=== PATIENT | male | born 1995 | race Caucasian/White ===

== ENCOUNTER 2017-01-29 20:36 | Emergency (ER) | payer BC ==
[2017-01-29] MEDS ORDERED: Ketorolac 60 MG/2 ML SDV IM ONE (21:08)
--- NOTE | 2017-01-29 21:12 | EDM.PDOC ---
ED HPI GENERAL MEDICAL PROBLEM - General Chief Complaint: Lower Extremity Injury/Pain Stated Complaint: PT HURT RT KNEE Time Seen by Provider: 01/29/17 21:10 Source of Information: Reports: Patient History Limitations: Reports: No Limitations - History of Present Illness INITIAL COMMENTS - FREE TEXT/NARRATIVE: History of present illness: [21-year-old male comes in status post trauma 3 weeks ago to right knee. Patient was playing basketball when he hyperextended his leg could not ambulate or bear weight on of her period of 5 minutes but then the pain went away and he was able to use it as was his norm. Patient now today he is visiting family and friends as he is from out of town and he was stepping out of the pickup when his leg gave out.] Review of systems: As per history of present illness and below otherwise all systems reviewed and negative. Past medical history: As per history of present illness and as reviewed below otherwise noncontributory. Surgical history: As per history of present illness and as reviewed below otherwise noncontributory. Social history: No reported history of drug or alcohol abuse. Family history: As per history of present illness and as reviewed below otherwise noncontributory. Physical exam: HEENT: Atraumatic, normocephalic, pupils reactive, negative for conjunctival pallor or scleral icterus, mucous membranes moist, throat clear, neck supple, nontender, trachea midline. Lungs: Clear to auscultation, breath sounds equal bilaterally, chest nontender. Heart: S1S2, regular, negative for clicks, rubs, or JVD. Abdomen: Soft, nondistended, nontender. Negative for masses or hepatosplenomegaly. Negative for costovertebral tenderness. Pelvis: Stable nontender. Genitourinary: Deferred. Rectal: Deferred. Extremities: Painful range of motion and guarding noted negative for cords or calf pain. Neurovascular unremarkable. Neuro: Awake, alert, oriented. Cranial nerves II through XII unremarkable. Cerebellum unremarkable. Motor and sensory unremarkable throughout. Exam nonfocal. Diagnostics: [X-ray right knee] Therapeutics: [Toradol] Impression: [Knee pain] Plan: [Wear brace, crutches follow-up with orthopedic Definitive disposition and diagnosis as appropriate pending reevaluation and review of above. right knee Pain Score (Numeric/FACES): 3 - Related Data Allergies Allergy/AdvReac Type Severity Reaction Status Date / Time No Known Allergies Allergy Verified 01/29/17 21:08 Home Meds: Home Meds . [No Known Home Meds] 01/29/17 [History] Review of Systems - Review of Systems Review Of Systems: See Below (History of present illness) ED EXAM, GENERAL - Physical Exam Exam: See Below (See history of present illness) Course - Vital Signs Last Recorded V/S: Last Vital Signs Temp 36.8 C 01/29/17 21:08 Pulse 60 01/29/17 21:08 Resp 16 01/29/17 21:08 BP 100/60 01/29/17 21:08 Pulse Ox 98 01/29/17 21:08 - Orders/Labs/Meds Orders: Active Orders 24 hr Category Date Time Status Knee 3V Rt [CR] Stat Exams 01/29/17 21:08 Ordered Meds: Medications Discontinued Medications Generic Name Dose Route Start Last Admin Trade Name Freq PRN Reason Stop Dose Admin Ketorolac Tromethamine 60 mg 01/29/17 21:08 Toradol IM 01/29/17 21:09 ONETIME ONE Departure - Departure Time of Disposition: 22:09 Disposition: Home, Self-Care 01 Condition: Good Clinical Impression: Knee pain - Discharge Information Instructions: Knee Immobilizer, [id number], Crutch Use, [id number] Forms: ED Department Discharge Additional Instructions: The following information is given to patients seen in the emergency department who are being discharged to home. This information is to outline your options for follow-up care. We provide all patients seen in our emergency department with a follow-up referral. The need for follow-up, as well as the timing and circumstances, are variable depending upon the specifics of your emergency department visit. If you don't have a primary care physician on staff, we will provide you with a referral. We always advise you to contact your personal physician following an emergency department visit to inform them of the circumstance of the visit and for follow-up with them and/or the need for any referrals to a consulting specialist. The emergency department will also refer you to a specialist when appropriate. This referral assures that you have the opportunity for follow-up care with a specialist. All of these measure are taken in an effort to provide you with optimal care, which includes your follow-up. Under all circumstances we always encourage you to contact your private physician who remains a resource for coordinating your care. When calling for follow-up care, please make the office aware that this follow-up is from your recent emergency room visit. If for any reason you are refused follow-up, please contact the [facility] Emergency Department at and asked to speak to the emergency department charge nurse. Use immobilizer Use crutches as directed Follow up with PCP when you return home Return to ER as needed as discussed - My Orders Last 24 Hours: My Active Orders 01/29/17 21:08 Knee 3V Rt [CR] Stat - Assessment/Plan Last 24 Hours: My Active Orders 01/29/17 21:08 Knee 3V Rt [CR] Stat
[2017-01-29 23:20] VITALS: BP 117/59
--- NOTE | 2017-01-30 19:02 | CR ---
EXAM DATE: 01/29/17 PATIENT'S AGE: 21 Patient: WANDER SOLOMON Facility: [place], [place] Site . Site : 1995 Study: XRay Knee Right [id number]/3/2017 10:49:02 PM Ordering Physician: Doctor Reyes Final Report: INDICATION: pain TECHNIQUE: 3 views of the right knee COMPARISON: None FINDINGS: Bones: No fractures or bone lesions. Joint spaces: Unremarkable. Soft tissues: Unremarkable. IMPRESSION: No acute bony abnormality. Dictated by Hermes Alcantar MD @ 01/29/2017 10:51:25 PM Dictated by: Hermes Alcantar MD @ 01/29/2017 22:51:51 (Electronic Signature) Report Signed by Proxy. [facility]ENTERJefferson
== END 2017-01-29 23:46 | disposition home or self-care (01) ==
LOC: MW.ED 20:36 → EDBD 20:36 → MW.ED 23:46
DX: M25.561 Pain in right knee (principal); Y93.67 Activity, basketball
CPT/HCPCS: 73562; 96372; 99283; J1885